=== PATIENT | female | born 1960 | race Caucasian/White ===

== ENCOUNTER 2017-05-22 18:23 | Emergency (ER) ==
[2017-05-22 18:30] VITALS: BP 138/89; TEMP 98.4; BMI 26.9
[2017-05-22] MEDS ORDERED: DECADRON 4 MG/ML SDV IM STA (18:38)
--- NOTE | 2017-05-22 18:41 | ED.PDOC ---
General ED Provider: Dr. ROMAN JACOBSEN Chief Complaint: Bite Stated Complaint: wasp sting righ hand right tigh Time Seen by Physician: 18:39 Mode of Arrival: Walk-In Information Source: Patient Exam Limitations: No limitations Primary Care Provider: ENRIQUETA GALO Nursing and Triage Documentation Reviewed and Agree: Yes Trauma/Injury Complaint Exam - Bite Injury Complaint/Exam Bite Occured: 1 hr ago Symptoms Are: Still present Animal Immunized: Reports: Yes Initial Severity: Moderate Current Severity: Moderate Character: Reports: Puncture Aggravating: Reports: None Alleviating: Reports: None Associated Signs and Symptoms: Reports: Erythema, Swelling. Denies: Fever, Drainage, Lymphadenopathy, Numbness, Tingling, Limited ROM Related History: Reports: Unprovoked Animal Available for Observation: No Animal Control Notified: No Infection/Sepsis Risk Factors: Present: None Bite Findings: Present: Erythema, Swelling Drainage: Present: None Review of Systems - Review Of Systems Constitutional: Reports: No symptoms Eyes: Reports: No symptoms Ears, Nose, Mouth, Throat: Reports: No symptoms Respiratory: Reports: No symptoms Cardiac: Reports: No symptoms GI: Reports: No symptoms : Reports: No symptoms Musculoskeletal: Reports: No symptoms Skin: Reports: Other (edema hand and leg at bite site only) Neurological: Reports: No symptoms Endocrine: Reports: No symptoms Hematologic/Lymphatic: Reports: No symptoms All Other Systems: Reviewed and Negative Past Medical History - Past Medical History Previously Healthy: Yes Endocrine: Reports: None Cardiovascular: Reports: None Respiratory: Reports: None Hematological: Reports: None Gastrointestinal: Reports: None Genitourinary: Reports: None Neuro/Psych: Reports: None Musculoskeletal: Reports: None Cancer: Reports: None Last Menstrual Period: no cycles - Surgical History General Surgical History: Reports: None - Family History Family History: Reports: None - Social History Smoking Status: Never smoker Hx Substance Use: No Alcohol Screening: None Physical Exam - Physical Exam Appearance: Well-appearing, No pain distress, Well-nourished Eyes: KELLEY, EOMI, Conjunctiva clear ENT: Ears normal, Nose normal, Oropharynx normal Respiratory: Airway patent, Breath sounds clear, Breath sounds equal, Respirations nonlabored Cardiovascular: RRR, Pulses normal, No rub, No murmur GI/: Soft, Nontender, No masses, Bowel sounds normal, No Organomegaly Musculoskeletal: Normal strength, ROM intact, No edema, No calf tenderness Skin: Warm, Dry, Normal color Neurological: Sensation intact, Motor intact, Reflexes intact, Cranial nerves intact, Alert, Oriented Psychiatric: Affect appropriate, Mood appropriate Critical Care Note - Critical Care Note Total Time (mins): 0 Course - Course Orders, Labs, Meds: Orders Category Date Time Status Dexamethasone 4 mg/ml Inj [Decadron 4 mg/ml Sdv] MEDS 05/22/17 18:38 Stat 4 mg IM ONCE STA Diphenhydramine Inj [Benadryl] MEDS 05/22/17 18:38 Stat 25 mg IM ONCE STA Hydrocodone Bit/Acetaminophen [[place] 10-325] MEDS 05/22/17 18:38 Stat 1 tab PO ONCE STA Vital Signs: Temp Pulse Resp BP Pulse Ox 05/22/17 18:24 98.4 F 74 20 138/89 96 Departure - Departure Time of Disposition: 19:00 Disposition: HOME SELF-CARE Discharge Problem: Bee sting Instructions: Insect Bite or Sting (ED) Condition: Good Pt referred to PMD for follow-up: Yes Additional Instructions: Please call your Family Physician as soon as possible to schedule a follow-up appointment. Allergies/Adverse Reactions: Allergies No Known Allergies Allergy (Unverified 05/22/17 18:30) Home Medications: Ambulatory Orders Dexlansoprazole [Dexilant] 60 mg PO DAILY 05/22/17 Escitalopram Oxalate [Lexapro] 5 mg PO DAILY 05/22/17 Nebivolol HCl [Bystolic] 5 mg PO DAILY 05/22/17
[2017-05-22] MEDS: BENADRYL IM STA (18:48)
[2017-05-22] MEDS: DECADRON 4 MG/ML SDV IM STA (18:51)
[2017-05-22] MEDS: NORCO 10-325 PO STA (18:52)
== END 2017-05-22 19:19 | disposition home or self-care (01) ==
LOC: ED 18:23
DX: T63.461A Toxic effect of venom of wasps, accidental (unintentional), initial encounter (principal); R60.0 Localized edema
CPT/HCPCS: 96372; 99283